=== PATIENT | female | born 1950 | race Caucasian/White ===

== ENCOUNTER 2018-01-01 15:54 | Emergency (ER) | payer OTHER ==
[2018-01-01] MEDS ORDERED: ONDANSETRON 4 MG (ODT) TAB ONE (16:22)
[2018-01-01 16:48] LABS: Urine Bacteria LOADED /HPF (<20); Urine Culture Reflex Order REFLEXED
[2018-01-01] MEDS ORDERED: CEFTRIAXONE 1000 MG/VIAL ONE (16:57)
[2018-01-01] MEDS ORDERED: LIDOCAINE 1% MPF 2 ML AMPULE ONE (16:57)
--- NOTE | 2018-01-01 17:13 | ER ---
Nurse's Notes [facility] Name: Jazmine Stone Age: 67 yrs Sex: Female : 1950 Arrival Date: 01/01/2018 Time: 15:58 Bed 13 Private MD: None, None Diagnosis: Urinary tract infection, site not specified;Adverse effect of other narcotics Presentation: 01/01 16:00 Presenting complaint: Patient states: n/v/chills/dizziness that started today. c/o sv dysuria since her uterine surgery. Transition of care: patient was not received from another setting of care. Onset of symptoms was January 01, 2018. Care prior to arrival: None. 16:00 Method Of Arrival: Ambulatory sv 16:00 Acuity: JOBY 3 sv 16:25 Risk Assessment: Do you want to hurt yourself or someone else? Patient reports no em desire to harm self or others. Initial Sepsis Screen: Does the patient meet any 2 criteria? No. Patient's initial sepsis screen is negative. Does the patient have a suspected source of infection? Yes: Dysuria/Frequency/Urgency/UTI. Historical: - Allergies: 16:02 Iodine; sv - Home Meds: 16:02 Tramadol Oral [Active]; Oxybutynin Chloride Oral [Active]; Vitamin B-12 Oral [Active]; sv - PMHx: 16:02 Uterine prolapse; sv - PSHx: 16:02 uterine prolapse; Cholecystectomy; Hysterectomy; sv - Immunization history:: Flu vaccine is not up to date. - Social history:: Smoking status: Patient/guardian denies using tobacco. - Ebola Screening: : No symptoms or risks identified at this time. Screenin:37 Abuse screen: Denies threats or abuse. Nutritional screening: No deficits noted. em Tuberculosis screening: No symptoms or risk factors identified. Fall Risk None identified. Assessment: 16:20 General: Appears in no apparent distress. comfortable, Behavior is calm, cooperative. em Pain: Denies pain. Neuro: Level of Consciousness is awake, alert, obeys commands, Oriented to person, place, time, situation, Moves all extremities. Gait is steady, Reports dizziness. Cardiovascular: Denies chest pain, shortness of breath, Capillary refill < 3 seconds Patient's skin is warm and dry. Respiratory: Airway is patent Respiratory effort is even, unlabored, Respiratory pattern is regular, symmetrical. GI: Abdomen is flat, Abd is soft and non tender X 4 quads. Reports nausea, vomiting. : Urine is cloudy, Reports burning with urination, pain urgency, urinary frequency. EENT: Oral mucosa is moist. Throat is clear is pink. Derm: Skin is intact, Skin is pink, warm \T\ dry. Musculoskeletal: Range of motion: intact in all extremities. 16:20 Reassessment: I agree with assessment completed by Sagar Clemons LVN . aa5 16:55 Reassessment: Patient appears in no apparent distress at this time. Patient and/or em family updated on plan of care and expected duration. Pain level reassessed. Patient is alert, oriented x 3, equal unlabored respirations, skin warm/dry/pink. Patient states symptoms have improved. Vital Signs: 16:02 BP 94 / 50; Pulse 93; Resp 16; Temp 97; Pulse Ox 96% ; Weight 60.33 kg; Height 5 ft. 0 sv in. (152.40 cm); Pain 0/10; 16:40 BP 130 / 69; Pulse 86; Resp 18; Pulse Ox 99% on R/A; em 17:08 BP 123 / 67; Pulse 83; Resp 17; Pulse Ox 94% on R/A; Pain 0/10; em 16:02 Body Mass Index 25.97 (60.33 kg, 152.40 cm) sv ED Course: 15:58 Patient arrived in ED. mr 15:58 None, None is Private Physician. mr 16:00 Triage completed. sv 16:02 Arm band placed on. sv 16:07 [facility] Kra[facility] F[facility]-C [facility]. snw 16:07 Bridger Patterson MD is Attending Physician. snw 16:07 Sagar Clemons LVN is Primary Nurse. em 16:20 Patient has correct armband on for positive identification. Bed in low position. Call em light in reach. Side rails up X2. Adult w/ patient. 17:25 No provider procedures requiring assistance completed. Patient did not have IV access em during this emergency room visit. Administered Medications: 16:25 Drug: Zofran 4 mg Route: PO; em 17:06 Follow up: Response: No adverse reaction; Nausea is decreased em 17:06 Drug: Rocephin (cefTRIAXone) 1 grams Route: IM; Site: right gluteus; em 17:25 Follow up: Response: No adverse reaction em Outcome: 17:12 Discharge ordered by . heath 17:25 Discharged to home ambulatory, with friend. em 17:25 Condition: good 17:25 Discharge instructions given to patient, Instructed on discharge instructions, follow up and referral plans. medication usage, Demonstrated understanding of instructions, follow-up care, medications, Prescriptions given X 4. 17:26 Patient left the ED. em Addendum: 01/05/2018 07:44 Addendum: Culture Results: Positive urine culture. No further action required. Bacteria a a5 sensitive to prescribed antibiotic. Signatures: Kristen Honeycutt, RN RN Fany Coleman, COFFEE BREAK ATTENDANT-C COFFEE BREAK ATTENDANT-Jazmine Luciano Edgar, WINDOW REPAIRER WINDOW REPAIRER em Anju Deleno, RN RN aa5 Corrections: (The following items were deleted from the chart) 01/01 16:03 16:00 Presenting complaint: Patient states: n/v/chills/dizziness that started today. sv sv
--- NOTE | 2018-01-01 17:13 | EDPHYS ---
Physician Documentation [facility] Name: Jazmine Stone Age: 67 yrs Sex: Female : 1950 Arrival Date: 01/01/2018 Time: 15:58 Bed 13 Private MD: None, None ED Physician Bridger Patterson HPI: 01/01 16:33 This 67 yrs old Female presents to ER via Ambulatory with complaints of snw Vomiting, Shaking. 16:33 The patient presents to the emergency department with nausea, vomiting. Onset: The snw symptoms/episode began/occurred suddenly, 1.5 hour(s) ago, and improved. Possible causes: pt took Tramadol about one hour prior to symptoms. Associated signs and symptoms: Pertinent positives: dysuria, nausea, vomiting. Severity of symptoms: At their worst the symptoms were moderate severe incapacitating. The patient has not experienced similar symptoms in the past. bladder suspension 10/19/17. Historical: - Allergies: 16:02 Iodine; sv - Home Meds: 16:02 Tramadol Oral [Active]; Oxybutynin Chloride Oral [Active]; Vitamin B-12 Oral [Active]; sv - PMHx: 16:02 Uterine prolapse; sv - PSHx: 16:02 uterine prolapse; Cholecystectomy; Hysterectomy; sv - Immunization history:: Flu vaccine is not up to date. - Social history:: Smoking status: Patient/guardian denies using tobacco. - Ebola Screening: : No symptoms or risks identified at this time. ROS: 16:23 Eyes: Negative for injury, pain, redness, and discharge, ENT: Negative for injury, snw pain, and discharge, Neck: Negative for injury, pain, and swelling, Cardiovascular: Negative for chest pain, palpitations, and edema, Respiratory: Negative for shortness of breath, cough, wheezing, and pleuritic chest pain, Back: Negative for injury and pain. 16:23 MS/Extremity: Negative for injury and deformity, Skin: Negative for injury, rash, and discoloration, Neuro: Negative for headache, weakness, numbness, tingling, and seizure, Psych: Negative for depression, anxiety, suicide ideation, homicidal ideation, and hallucinations. 16:23 Constitutional: Positive for chills, fatigue, malaise. 16:23 Abdomen/GI: Positive for nausea and vomiting. 16:23 : Positive for urinary symptoms. Exam: 16:23 Constitutional: This is a well developed, well nourished patient who is awake, alert, snw and in no acute distress. Head/Face: Normocephalic, atraumatic. Eyes: Pupils equal round and reactive to light, extra-ocular motions intact. Lids and lashes normal. Conjunctiva and sclera are non-icteric and not injected. Cornea within normal limits. Periorbital areas with no swelling, redness, or edema. ENT: Nares patent. No nasal discharge, no septal abnormalities noted. Tympanic membranes are normal and external auditory canals are clear. Oropharynx with no redness, swelling, or masses, exudates, or evidence of obstruction, uvula midline. Mucous membranes moist. Neck: Trachea midline, no thyromegaly or masses palpated, and no cervical lymphadenopathy. Supple, full range of motion without nuchal rigidity, or vertebral point tenderness. No Meningismus. Chest/axilla: Normal chest wall appearance and motion. Nontender with no deformity. No lesions are appreciated. Cardiovascular: Regular rate and rhythm with a normal S1 and S2. No gallops, murmurs, or rubs. Normal PMI, no JVD. No pulse deficits. Respiratory: Lungs have equal breath sounds bilaterally, clear to auscultation and percussion. No rales, rhonchi or wheezes noted. No increased work of breathing, no retractions or nasal flaring. Abdomen/GI: Soft, non-tender, with normal bowel sounds. No distension or tympany. No guarding or rebound. No evidence of tenderness throughout. Back: No spinal tenderness. No costovertebral tenderness. Full range of motion. Skin: Warm, dry with normal turgor. Normal color with no rashes, no lesions, and no evidence of cellulitis. MS/ Extremity: Pulses equal, no cyanosis. Neurovascular intact. Full, normal range of motion. Neuro: Awake and alert, GCS 15, oriented to person, place, time, and situation. Cranial nerves II-XII grossly intact. Motor strength 5/5 in all extremities. Sensory grossly intact. Cerebellar exam normal. Normal gait. Vital Signs: 16:02 BP 94 / 50; Pulse 93; Resp 16; Temp 97; Pulse Ox 96% ; Weight 60.33 kg; Height 5 ft. 0 sv in. (152.40 cm); Pain 0/10; 16:40 BP 130 / 69; Pulse 86; Resp 18; Pulse Ox 99% on R/A; em 17:08 BP 123 / 67; Pulse 83; Resp 17; Pulse Ox 94% on R/A; Pain 0/10; em 16:02 Body Mass Index 25.97 (60.33 kg, 152.40 cm) sv MDM: 16:07 Patient medically screened. snw 17:15 Data reviewed: vital signs, nurses notes. Data interpreted: Pulse oximetry: on room air snw is 94 %. Interpretation: acceptable. Counseling: I had a detailed discussion with the patient and/or guardian regarding: the historical points, exam findings, and any diagnostic results supporting the discharge/admit diagnosis, lab results, the need for outpatient follow up, to return to the emergency department if symptoms worsen or persist or if there are any questions or concerns that arise at home. Special discussion: Based on the history and exam findings, there is no indication for further emergent testing or inpatient evaluation. I discussed with the patient/guardian the need to see the primary care provider for further evaluation of the symptoms. I discussed with the patient/guardian the need to see the urologist for further evaluation of the symptoms. 01/01 16:08 Order name: Urine Culture snw 01/01 16:08 Order name: Urine Microscopic Only; Complete Time: 16:51 snw 01/01 16:46 Order name: Urine Dipstick--Ancillary (enter results) bd 01/01 16:08 Order name: Urine Dipstick-Ancillary (obtain specimen); Complete Time: 16:32 snw Administered Medications: 16:25 Drug: Zofran 4 mg Route: PO; em 17:06 Follow up: Response: No adverse reaction; Nausea is decreased em 17:06 Drug: Rocephin (cefTRIAXone) 1 grams Route: IM; Site: right gluteus; em 17:25 Follow up: Response: No adverse reaction em Disposition: 01/02 15:07 Co-signature as Attending Physician, Bridger Patterson MD. gs Disposition: 01/01/18 17:12 Discharged to Home. Impression: Urinary tract infection, site not specified, Adverse effect of other narcotics. - Condition is Stable. - Discharge Instructions: Dysuria, Urinary Tract Infection, Adult, Vomiting, Adult. - Prescriptions for Augmentin 875- 125 mg Oral Tablet - take 1 tablet by ORAL route every 12 hours for 10 days; 20 tablet. Macrobid 100 mg Oral Capsule - take 1 capsule by ORAL route every 12 hours for 10 days; 20 capsule. Diclofenac Sodium 75 mg Oral Tablet Sustained Release - take 1 tablet by ORAL route 2 times per day; 30 tablet. Zofran 4 mg Oral Tablet - take 1 tablet by ORAL route every 12 hours As needed; 20 tablet. - Work release form, Medication Reconciliation Form, Thank You Letter, Antibiotic Education, Prescription Opioid Use form. - Follow up: Private Physician; When: 2 - 3 days; Reason: Recheck today's complaints, Continuance of care, Re-evaluation by your physician. Follow up: Emergency Department; When: As needed; Reason: Worsening of condition. Signatures: Dispatcher [employer] [facility] Kristen Honeycutt RN RN Fany Coleman, INDIRECT SALES EXEC-C INDIRECT SALES EXEC-Csnw Sagar Clemons, GRINDER SET UP OPERATOR EXTERNAL GRINDER SET UP OPERATOR EXTERNAL Bridger Crenshaw MD MD gs Corrections: (The following items were deleted from the chart) 01/01 16:21 16:08 Influenza Screen (A \T\ B)+[id number].BRZ ordered. [facility] 17:26 17:12 01/01/2018 17:12 Discharged to Home. Impression: Urinary tract infection, site em not specified; Adverse effect of other narcotics. Condition is Stable. Forms are Medication Reconciliation Form, Thank You Letter, Antibiotic Education, Prescription Opioid Use. Follow up: Private Physician; When: 2 - 3 days; Reason: Recheck today's complaints, Continuance of care, Re-evaluation by your physician. Follow up: Emergency Department; When: As needed; Reason: Worsening of condition. snw
[2018-01-01 17:49] LABS: Urine Blood TRACE (NEG); Urine Glucose 2+ (NEG); Urine Protein NEGATIVE (NEG)
== END 2018-01-01 17:26 | disposition home or self-care (01) ==
LOC: ER 15:54
DX: N39.0 Urinary tract infection, site not specified (principal); T40.4X5A Adverse effect of other synthetic narcotics, initial encounter; Z91.048 Other nonmedicinal substance allergy status
CPT/HCPCS: 87077 ×2; 87086; 87088; 87186 ×2; 96372; 99283; J2001; 81003; 81015